=== PATIENT | female | born 1965 | race African-American/Black ===

== ENCOUNTER 2016-05-18 23:35 | Emergency (ER) | payer MEDICAID ==
--- NOTE | 2016-05-19 00:20 | ED Physician Chart ---
Chief Complaint/HPI - Patient Information Date Seen:: 05/19/16 Time Seen:: 00:15 Chief Complaint:: removal of toe ring History of Present Illness:: location: toe quality: ring needs removal severity: mild duration: several weeks context: pt with toe ring says the ring is stuck, cannot remove it, comes to ER for ring removal, no complaint of fever, or discharge or infection. mod factors: none assoc s/s: none hx from pt Allergies:: Allergies Allergy/AdvReac Type Severity Reaction Status Date / Time pollen Allergy Severe Uncoded 11/05/12 15:07 Vitals:: Vital Signs - 8 hr 05/18/16 23:54 Temp 98.1 F HR 63 RR 18 BP 137/85 O2 Sat % 100 Historian:: Patient Review:: Nurse's Note Reviewed Review of Systems - Review of Systems General/Constitutional: No fever, No chills, No weight loss, No weakness, No diaphoresis, No edema, No loss of appetite Skin: No skin lesions, No rash, No bruising Head: No headache, No light-headedness Eyes: No loss of vision, No pain, No diplopia ENT: No earache, No nasal drainage, No sore throat, No tinnitus Neck: No neck pain, No swelling, No thyromegaly, No stiffness, No mass noted Cardio Vascular: No chest pain, No palpitations, No PND, No orthopnea, No edema Pulmonary: No SOB, No cough, No sputum, No wheezing GI: No nausea, No vomiting, No diarrhea, No pain, No melena, No hematochezia, No constipation, No hematemesis G/U: No dysuria, No frequency, No hematuria Musculoskeletal: No bone or joint pain, No back pain, No muscle pain Endocrine: No polyuria, No polydipsia Psychiatric: No prior psych history, No depression, No anxiety, No suicidal ideation Hematopoietic: No bruising, No lymphadenopathy Allergic/Immuno: No urticaria, No angioedema Neurological: No syncope, No focal symptoms, No weakness, No paresthesia, No headache, No seizure, No dizziness, No confusion, No vertigo Past Medical History - Past Medical History Past Medical History: No significant medical hx Family History: None Social History: Alcohol, No Drug Use, Single Surgical History: None Psychiatricy History: None Medication: Reviewed Family Medical History - Family Member Mother History Unknown: Yes Ethnicity: Living Status: Still Living Hx Family Cancer: No Hx Family Coronary Artery Disease: No Hx Family Congestive Heart Failure: No Hx Family Hypertension: No Hx Family Stroke: No Hx Family Diabetes: No Hx Family Seizures: No Hx Family Dementia: No Hx Family AIDS: No Hx Family HIV: No Hx Family COPD: No Hx Family Hepatitis: No Hx Family Psychiatric Problems: Yes Hx Family Tuberculosis: No Physical Exam - Physical Examination General/Constitutional: Awake, Well-developed, well-nourished, Alert, No distress, GCS 15, Non-toxic appearing, Ambulatory Eyes: Lids, conjuctiva normal, PERRL, EOMI Respiratory: Nl effort/Exclusion, Clear to Auscultation, No Wheeze/Rhonchi/Rales Cardio Vascular: RRR, No murmur, gallop, rubs, NL S1 S2 Extremities: No tenderness or effusion, Full ROM, normal strength in all extremities, No edema, Normal digits & nails (toe ring on right second toe. no wound, no erythema, no discharge, no signs of infection. ring removed directly in ER with ring cutter. pt tolerated procedure well. no wound is observed. ) ED Septic Shock - . Is Septic Shock (SBP<90, OR Lactate>4 mmol\L) present?: No - <6hrs of presentation: Vital Signs: Vital Signs - 8 hr 05/18/16 23:54 Temp 98.1 F HR 63 RR 18 BP 137/85 O2 Sat % 100 Reassessment (Disposition) - Reassessment Reassessment:: MDM: pt with toe ring, says she cannot remove it. ring removed with ring cutter ED course: stable while in ER, toe ring removed directly with ring cutter. Reassessment Condition:: Improved - Diagnosis Diagnosis:: removal of toe ring - Aftercare/Follow up Instructions Aftercare/Follow-Up Instructions:: Refer to Discharge Instructions - Patient Disposition Discharge/Transfer:: Home Condition at Disposition:: Stable
== END 2016-05-19 00:45 | disposition home or self-care (01) ==
LOC: ER 23:35
DX: S90.454A Superficial foreign body, right lesser toe(s), initial encounter (principal); Z91.048 Other nonmedicinal substance allergy status; X58.XXXA Exposure to other specified factors, initial encounter; Y93.89 Activity, other specified; Y92.89 Other specified places as the place of occurrence of the external cause; Y99.8 Other external cause status
CPT/HCPCS: Z7502

== ENCOUNTER 2016-08-05 23:32 | Emergency (ER) | payer MEDICAID ==
[2016-08-06] MEDS ORDERED: Multivitamin Inj 10 ML, Thiamine HCL 100 MG, Magnesium Sulfate 2 GM, Folic Acid 1 MG in... IV ONE (00:07)
[2016-08-06] MEDS ORDERED: Multivitamin Inj 10 mL Vial IV ONE (00:12)
[2016-08-06] MEDS ORDERED: Thiamine 100 mg/mL 2mL Vial ONE (00:13)
[2016-08-06] MEDS ORDERED: Magnesium Sulfate 1 gm/2 mL 2mL Vial IV ONE (00:14)
--- NOTE | 2016-08-06 00:14 | ED Physician Chart ---
Chief Complaint/HPI - Patient Information Date Seen:: 08/06/16 Time Seen:: 00:00 Chief Complaint:: detoxification History of Present Illness:: wishes to be admitted to detoxify from alcohol. Has been drinking 2-3 bottles of wine per day for the last 2 months. Drank two bottles of wine yesterday. Thinks she is having alcohol withdrawal symptoms: confusion and dizziness. Allergies:: Allergies Allergy/AdvReac Type Severity Reaction Status Date / Time pollen Allergy Severe Uncoded 11/05/12 15:07 Vitals:: Vital Signs - 8 hr 08/05/16 23:35 Temp 98.2 F HR 96 RR 19 BP 147/95 O2 Sat % 97 Historian:: Patient Review:: Nurse's Note Reviewed Review of Systems - Review of Systems General/Constitutional: No fever, No chills Skin: No skin lesions Head: No headache Eyes: No loss of vision ENT: No earache, No sore throat Neck: No neck pain Cardio Vascular: No chest pain, No palpitations Pulmonary: No cough GI: No nausea, No vomiting Musculoskeletal: No bone or joint pain, No muscle pain Endocrine: No polyuria, No polydipsia Psychiatric: Prior psych history, Depression Hematopoietic: No bruising Allergic/Immuno: No urticaria Neurological: No syncope Family Medical History - Family Member Mother History Unknown: Yes Ethnicity: Living Status: Still Living Hx Family Cancer: No Hx Family Coronary Artery Disease: No Hx Family Congestive Heart Failure: No Hx Family Hypertension: No Hx Family Stroke: No Hx Family Diabetes: No Hx Family Seizures: No Hx Family Dementia: No Hx Family AIDS: No Hx Family HIV: No Hx Family COPD: No Hx Family Hepatitis: No Hx Family Psychiatric Problems: Yes Hx Family Tuberculosis: No Labs/Radiology/EKG Results - Lab Results Comments:: Laboratory Results - last 24 hr 08/06/16 08/06/16 08/06/16 00:14 00:14 00:14 WBC 5.6 RBC 4.31 Hgb 13.8 D Hct 40.4 D MCV 93.6 MCH 32.1 H MCHC Differential 34.3 RDW 13.4 Plt Count 212 MPV 7.0 Neutrophils % 44.3 Lymphocytes % 45.7 Monocytes % 9.2 Eosinophils % 0.4 Basophils % 0.4 Sodium 135 L Potassium 3.9 Chloride 99 Carbon Dioxide 23.5 Anion Gap 16.4 H BUN 13 Creatinine 0.7 Est GFR ( Amer) > 60.0 Est GFR (Non-Af Amer) > 60.0 BUN/Creatinine Ratio 18.6 Glucose 143 H Calcium 10.1 Magnesium 2.4 Total Bilirubin 0.4 AST 42 H ALT 30 Alkaline Phosphatase 81 Total Protein 8.5 H Albumin 4.8 Globulin 3.7 Albumin/Globulin Ratio 1.3 Urine Source Urine Color Urine Clarity Urine pH Ur Specific [place] Urine Protein Urine Glucose (UA) Urine Ketones Urine Blood Urine Nitrate Urine Bilirubin Urine Urobilinogen Ur Leukocyte Esterase Urine RBC Urine WBC Ur Epithelial Cells Urine Bacteria Urine Test Ethyl Alcohol 426 H 08/06/16 08/06/16 00:20 00:20 WBC RBC Hgb Hct MCV MCH MCHC Differential RDW Plt Count MPV Neutrophils % Lymphocytes % Monocytes % Eosinophils % Basophils % Sodium Potassium Chloride Carbon Dioxide Anion Gap BUN Creatinine Est GFR ( Amer) Est GFR (Non-Af Amer) BUN/Creatinine Ratio Glucose Calcium Magnesium Total Bilirubin AST ALT Alkaline Phosphatase Total Protein Albumin Globulin Albumin/Globulin Ratio Urine Source [place] Urine Color STRAW Urine Clarity CLEAR Urine pH 6.0 Ur Specific [place] Urine Protein NEGATIVE Urine Glucose (UA) NEGATIVE Urine Ketones NEGATIVE Urine Blood TRACE Urine Nitrate NEGATIVE Urine Bilirubin NEGATIVE Urine Urobilinogen 0.2 Ur Leukocyte Esterase TRACE H Urine RBC 0-1 Urine WBC 0-2 Ur Epithelial Cells RARE Urine Bacteria OCCASIONAL Urine Test NEGATIVE Ethyl Alcohol Assessment - Assessment General Assessment: talked to both Dr. Francisco Brown and Dr. Akers and neither doctor wanted to admit her. ED Septic Shock - . Is Septic Shock (SBP<90, OR Lactate>4 mmol\L) present?: No - <6hrs of presentation: Vital Signs: Vital Signs - 8 hr 08/05/16 23:35 Temp 98.2 F HR 96 RR 19 BP 147/95 O2 Sat % 97 Reassessment (Disposition) - Reassessment Reassessment Condition:: Improved - Diagnosis Diagnosis:: alcohol intoxication - Aftercare/Follow up Instructions Aftercare/Follow-Up Instructions:: Refer to Discharge Instructions - Patient Disposition Discharge/Transfer:: Home Condition at Disposition:: Stable, Improved
[2016-08-06 00:36] LABS: % BASOPHILS 0.4 % (0.0-2.0); % EOSINOPHILS 0.4 % (0.0-5.0); % LYMPHOCYTES 45.7 % (20.0-50.0); % MONOCYTES 9.2 % (2.0-10.0); % NEUTROPHILS 44.3 % (40.0-80.0); MEAN CELL VOLUME 93.6 fl (81-100); MEAN CORPUSCULAR HEMOGLOBIN 32.1 pg (27.0-31.0); MEAN CORPUSCULAR HGB CONC 34.3 pg (28.0-36.0); NEUTROPHILE ABSOLUTE 2.5 Th/cmm (1.8-8.0); PLATELET COUNT 212 Th/cmm (150-400); RED BLOOD COUNT 4.31 Mil/cmm (3.80-5.10); RED CELL DISTRIBUTION WIDTH 13.4 % (11.5-20.0); WHITE BLOOD COUNT 5.6 Th/cmm (4.8-10.8)
[2016-08-06 00:37] LABS: HEMATOCRIT 40.4 % (35.0-45.0); HEMOGLOBIN 13.8 gm/dL (11.7-15.5)
[2016-08-06 00:39] LABS: ALB/GLOB RATIO 1.3 (1.0-1.8); ALKALINE PHOSPHATASE 81 U/L (34-104); ANION GAP 16.4 (7.0-16.0); BILIRUBIN,TOTAL 0.4 mg/dL (0.3-1.0); BUN - UREA NITROGEN 13 mg/dL (7-25); BUN/CREATININE RATIO 18.6; CALCIUM SERUM 10.1 mg/dL (8.6-10.3); CARBON DIOXIDE 23.5 mEq/L (21.0-31.0); CHLORIDE 99 mEq/L (98-107); CREATININE - SERUM 0.7 mg/dL (0.6-1.2); GLUCOSE 143 mg/dL (70-105); POTASSIUM SERUM 3.9 mEq/L (3.5-5.1); SGOT 42 U/L (13-39); SGPT/ALT 30 U/L (7-52); SODIUM SERUM 135 mEq/L (136-145)
[2016-08-06 00:43] LABS: URINE BILIRUBIN NEGATIVE (NEGATIVE); URINE COLOR STRAW; URINE GLUCOSE (UA) NEGATIVE (NEGATIVE); URINE KETONE NEGATIVE (NEGATIVE)
[2016-08-06 00:44] LABS: URINE BACTERIA OCCASIONAL /hpf (NONE SEEN); URINE BLOOD TRACE (NEGATIVE); URINE EPITHELIAL CELLS RARE /lpf (FEW); URINE PROTEIN NEGATIVE (NEGATIVE); URINE RBC 0-1 /hpf (0-5); URINE UROBILINOGEN 0.2 E.U./dL (0.2 - 1.0); URINE WBC 0-2 /hpf (0-5)
== END 2016-08-06 05:25 | disposition home or self-care (01) ==
LOC: ER 23:32
DX: F10.129 Alcohol abuse with intoxication, unspecified (principal); Z91.09 Other allergy status, other than to drugs and biological substances
CPT/HCPCS: 99284; 36415; 85025; 81001; 80320; 81025; 83735; 80053; J3411; J3475; J7030; X6226; X6598; Z7502; Z7610

== ENCOUNTER 2016-09-01 17:23 | Emergency (ER) | payer MEDICAID ==
[2016-09-01 17:43] VITALS: BP 131/88
[2016-09-01] MEDS ORDERED: Albuterol Nebulizer 2.5mg/3mL HHN ONE (19:39)
--- NOTE | 2016-09-01 19:41 | ED Physician Chart ---
Chief Complaint/HPI - Patient Information Date Seen:: 09/01/16 Time Seen:: 19:35 Chief Complaint:: asthma exac History of Present Illness:: pt here for asthma exac. has albuterol mdi but didnt use it. has no fever hx. is wheezing a bit and chest feels tight w deep breath exactly like asthma flare ups in past. nonsmoker. pt says she was at [facility] yest and was given referral to allergy dr. pt thinks the jalyn green winds are causing allergy flare up w these sx and clear rhinitis sh complains of a st also. Allergies:: Allergies Allergy/AdvReac Type Severity Reaction Status Date / Time pollen Allergy Severe Uncoded 11/05/12 15:07 Vitals:: Vital Signs - 8 hr 09/01/16 09/01/16 17:42 17:45 Temp 98.4 F HR 65 RR 17 BP 131/88 131/88 O2 Sat % 99 Historian:: Patient Review of Systems - Review of Systems General/Constitutional: No fever, No chills, No weight loss, No weakness, No diaphoresis, No edema, No loss of appetite Skin: No skin lesions, No rash, No bruising Head: No headache, No light-headedness Eyes: No loss of vision, No pain, No diplopia ENT: No earache, Nasal drainage, Sore throat, No tinnitus Neck: No neck pain, No swelling, No thyromegaly, No stiffness, No mass noted Cardio Vascular: No chest pain, No palpitations, No PND, No orthopnea, No edema Pulmonary: No SOB, No cough, No sputum, Wheezing GI: No nausea, No vomiting, No diarrhea, No pain, No melena, No hematochezia, No constipation, No hematemesis G/U: No dysuria, No frequency, No hematuria Musculoskeletal: No bone or joint pain, No back pain, No muscle pain Endocrine: No polyuria, No polydipsia Psychiatric: No prior psych history, No depression, No anxiety, No suicidal ideation Hematopoietic: No bruising, No lymphadenopathy Allergic/Immuno: No urticaria, No angioedema Neurological: No syncope, No focal symptoms, No weakness, No paresthesia, No headache, No seizure, No dizziness, No confusion, No vertigo Past Medical History - Past Medical History Past Medical History: No significant medical hx, Asthma/COPD, Other (seasonal allergies) Social History: Non Smoker Medication: Reviewed Family Medical History - Family Member Mother History Unknown: Yes Ethnicity: Living Status: Still Living Hx Family Cancer: No Hx Family Coronary Artery Disease: No Hx Family Congestive Heart Failure: No Hx Family Hypertension: No Hx Family Stroke: No Hx Family Diabetes: No Hx Family Seizures: No Hx Family Dementia: No Hx Family AIDS: No Hx Family HIV: No Hx Family COPD: No Hx Family Hepatitis: No Hx Family Psychiatric Problems: Yes Hx Family Tuberculosis: No Physical Exam - Physical Examination General/Constitutional: Awake, Well-developed, well-nourished, Alert, No distress, GCS 15, Non-toxic appearing, Ambulatory Other Gen/Cons comments:: pt calm ...no sev distress. Head: Atraumatic Eyes: Lids, conjuctiva normal, PERRL, EOMI Skin: Nl inspection, No rash, No skin lesions, No ecchymosis, Well hydrated, No lymphadenopathy ENMT: External ears, nose nl, Nasal exam nl, Lips, teeth, gums nl Neck: Nontender, Full ROM w/o pain, No JVD, No nuchal rigidity, No bruit, No mass, No stridor Respiratory: Nl effort/Exclusion, Clear to Auscultation, No Wheeze/Rhonchi/Rales Other Respiratory comments:: lungs are act quite clear. Cardio Vascular: RRR, No murmur, gallop, rubs, NL S1 S2 GI: No tenderness/rebounding/guarding, No organomegaly, No hernia, Normal BS's, Nondistended, No mass/bruits, No McBurney tenderness : No CVA tenderness Extremities: No tenderness or effusion, Full ROM, normal strength in all extremities, No edema, Normal digits & nails Neuro/Psych: Alert/oriented, DTR's symmetric, Normal sensory exam, Normal motor strength, Judgement/insight normal, Mood normal, Normal gait, No focal deficits Misc: normal gait, Normal back, No paraspinal tenderness ED Septic Shock - . Is Septic Shock (SBP<90, OR Lactate>4 mmol\L) present?: No - <6hrs of presentation: Vital Signs: Vital Signs - 8 hr 09/01/16 09/01/16 17:42 17:45 Temp 98.4 F HR 65 RR 17 BP 131/88 131/88 O2 Sat % 99 Reassessment (Disposition) - Reassessment Reassessment:: pt feels better s/p neb tx. Reassessment Condition:: Improved - Diagnosis Diagnosis:: 1 asthma exacerbation (mild) 2 sore throat /pharyngitis - Aftercare/Follow up Instructions Aftercare/Follow-Up Instructions:: Counseled pt regarding lab results/diagnosis & need follow up Medication Prescribed:: rx amox - Patient Disposition Discharge/Transfer:: Home Condition at Disposition:: Improved ED Discharge Plan - Patient Disposition Instructions: Asthma, Adult, [id number], Viral and Bacterial Pharyngitis, [id number] Additional Instructions: take medications as prescribed
[2016-09-01] MEDS: Albuterol Nebulizer 2.5mg/3mL HHN STA (19:42)
== END 2016-09-01 20:15 | disposition home or self-care (01) ==
LOC: ER 17:23
DX: J45.901 Unspecified asthma with (acute) exacerbation (principal); J44.9 Chronic obstructive pulmonary disease, unspecified; J45.909 Unspecified asthma, uncomplicated; Z91.048 Other nonmedicinal substance allergy status
CPT/HCPCS: 94640; J7613; Z7502

== ENCOUNTER 2017-03-13 14:28 | Emergency (ER) | payer MEDICAID ==
--- NOTE | 2017-03-13 14:46 | ED Physician Chart ---
ED Chief Complaint/HPI - Patient Information Date Seen:: 03/13/17 Time Seen:: 14:46 Chief Complaint:: COCCYX INJURY LAST PM WALKING DOWN STAIRS AND FALLING. History of Present Illness:: THE PT WAS WALKING DOWN STAIRS LAST EVENING AND FELL LANDING ON BUTTOCK. SINCE THEN SHE HAS BEEN IN SEVERE 20/10 PAIN IN THE TAIL BONE. THE PT DENIES ANY HEAD, NECK OR EXTREMITY PAIN OR INJURIES. NO LOC, WEAKNESS OR PARENTHESES IN UPPER OR LOWER EXTREMITIES. PT DROVE HERSELF TO THE HOSPITAL. SHE LIVES WITHIN [address] OF [address]ITAL AND SAYS THAT SHE WILL BE ABLE TO WALK HOME AFTER RECEIVING PAIN MEDICATIONS. Allergies:: Allergies Allergy/AdvReac Type Severity Reaction Status Date / Time pollen Allergy Severe Uncoded 11/05/12 15:07 ED Review of Systems - Review of Systems General/Constitutional: No fever, No chills, No weight loss, Weakness ( Generalized weakness and for approximately one month.), No diaphoresis, No edema , Loss of appetite ( Loss of appetite over a period of one month.) Skin: No skin lesions, No rash, Bruising Head: No headache, Light headed Eyes: No loss of vision, No pain, No diplopia ENT: Nasal drainage (daily Due to allergies.), No sore throat, No tinnitus Neck: No neck pain, No swelling, No stiffness, No mass noted Cardio Vascular: No chest pain, No orthopnea, No edema Pulmonary: SOB, No SOB, No cough, No wheezing GI: No nausea, No vomiting, No diarrhea, Pain G/U: No dysuria, No frequency, No hematuria Sight Mounter: No vaginal discharge, No abnormal vaginal bleed Endocrine: No polyuria, No polydipsia Psychiatric: Prior psych history, Depression, Anxiety, No suicidal ideation, No visual hallucination Hematopoietic: No bruising, No lymphadenopathy Allergic/Immuno: Urticaria, Angioedema Neurological: No syncope, No paresthesia, No headache, No seizure, No dizziness , Vertigo, Other ( William generalized intention from her most prominent in the upper extremities.) Family Medical History - Family Member Mother History Unknown: Yes Ethnicity: Living Status: Still Living Hx Family Cancer: No Hx Family Coronary Artery Disease: No Hx Family Congestive Heart Failure: No Hx Family Hypertension: No Hx Family Stroke: No Hx Family Diabetes: No Hx Family Seizures: No Hx Family Dementia: No Hx Family AIDS: No Hx Family HIV: No Hx Family COPD: No Hx Family Hepatitis: No Hx Family Psychiatric Problems: Yes Hx Family Tuberculosis: No ED Labs/Radiology/EKG Results - Radiology Results Results: 3 VIEWS SACRUM AND COCCYX NEG FOR ACUTE FRACTURES OR DISLOCATION. NO SOFT TISSUE FOREIGN BODIES. IMPRESSION: NO ACUTE TRAUMATIC FINDINGS. ED Assessment - Assessment General Assessment: CASE SUMMARY:This 51-year-old female sustained an injury to her tailbone last evening when she fell walking downstairs. She landed on her tailbone with no associated head, neck, or extremity injuries. On physical examination she had marked tenderness over the coccyx. X-ray studies were negative for any acute fractures in that region. The patient's complaints were addressed with IV morphine and Toradol, She was discharged with a prescription for Percocet 10/ 325 with the usual precautions regarding mixing it with alcohol and taking it within six hours of driving or activities requiring alertness. MDM DDX for FALL ON STAIRS: NOT Acute head trauma based on patient's history and my physical exam of head. NOT C-Spine injury based on NEXUS criteria. NOT Lumbar spine injuries based on patiet's history and my physical exam. NOT Closed long bone fractures of upper or lower Extremities based on patient's history and my physical examination. NO Internal injuries of the chest or abdomen based on physical examination. ED Septic Shock - . Is Septic Shock (SBP<90, OR Lactate>4 mmol\L) present?: No ED Reassessment (Disposition) - Reassessment Reassessment Condition:: Improved - Diagnosis Diagnosis:: COCCYX CONTUSION USE IBUPROFEN FOR MILD TO MODERATE PAIN. USE THE PERCOCET FOR MORE SEVERE PAIN. DON'T MIX THE PERCOCET WITH ALCOHOL OR TAKE IT WITHIN 6 HOURS OF DRIVING OR ACTIVITIES REQUIRING ALERTNESS. FOLLOW UP WITH YOUR PRIMARY CARE PHYSICIAN THIS COMING WEEK. RETURN TO THE ER FOR ANY WORSENING OF YOUR SYMPTOMS OR NEW SYMPTOMS NOT ADDRESSED DURING YOUR ER EVALUATION. - Aftercare/Follow up Instructions Aftercare/Follow-Up Instructions:: Counseled pt regarding lab results/diagnosis & need follow up - Patient Disposition Discharge/Transfer:: Home ED Discharge Plan - Patient Disposition Admit/Discharge/Transfer: PT DISCHARGED HOME Condition at Disposition: Stable Prescriptions: Oxycodone HCl/Acetaminophen [Percocet 325 mg-10 mg*] 1 each PO Q6H PRN #10 tab PRN Reason: Pain (Moderate) Instructions: Contusion, [id number] Additional Instructions: Light activity as tolerated
[2017-03-13] MEDS ORDERED: Morphine Sulfate 4 mg/mL 1mL Syr IVP ONE (14:58)
[2017-03-13] MEDS ORDERED: Morphine Sulfate 2 mg/mL 1mL Syr ONE ×2 (15:05→16:31)
[2017-03-13] MEDS ORDERED: Hydrocodone/APAP 5mg/325mg Tab PO ONE (16:34)
[2017-03-13] MEDS ORDERED: APAP/Oxycodone 5/325mg Oral Tab PO STA (17:28)
[2017-03-13] MEDS ORDERED: APAP/Oxycodone 5/325mg Oral Tab ONE (17:39)
--- NOTE | 2017-03-14 07:52 | Diagnostic Imaging Report ---
Sacrum/coccyx (3 views) HISTORY: Pain No acute bony abnormalities. No fractures. Sacroiliac joints appear normal. Mild deformity about the right pubic symphysis but appears chronic. IMPRESSION: 1. No acute abnormalities 2. Subtle deformity involving the right pubic symphysis that appears chronic.
== END 2017-03-13 19:13 | disposition home or self-care (01) ==
LOC: ER 14:28
DX: S30.0XXA Contusion of lower back and pelvis, initial encounter (principal); Z91.09 Other allergy status, other than to drugs and biological substances; W19.XXXA Unspecified fall, initial encounter; Y93.89 Activity, other specified; Y92.89 Other specified places as the place of occurrence of the external cause; Y99.8 Other external cause status
CPT/HCPCS: 99284; 96374; 96375; 96376; 72220; J2270; J1885; J2405 ×2; Z7502

== ENCOUNTER 2018-01-15 21:53 | Emergency (ER) | payer MEDICAID ==
--- NOTE | 2018-01-15 23:39 | ED Physician Chart ---
ED Chief Complaint/HPI - Patient Information Date Seen:: 01/15/18 Time Seen:: 23:34 Chief Complaint:: knee ankle pains History of Present Illness:: 52 yr old female who fell down steps on porch earlier today with bilat knee pains and bilateral ankle pains and abraison lt jef lt ankle pain with swelling rt lat ankle Allergies:: Allergies Allergy/AdvReac Type Severity Reaction Status Date / Time pollen Allergy Severe Uncoded 11/05/12 15:07 Vitals:: Vital Signs - 8 hr 01/15/18 22:00 Temp 97.9 F HR 95 RR 18 BP 138/92 O2 Sat % 98 ED Review of Systems - Review of Systems General/Constitutional: No fever Skin: No skin lesions Head: No headache Eyes: No loss of vision ENT: No earache Neck: No neck pain Cardio Vascular: No chest pain Pulmonary: No SOB GI: No vomiting G/U: No dysuria 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 Musculoskeletal: Bone or joint pain Endocrine: No polyuria Psychiatric: No depression Allergic/Immuno: No urticaria Neurological: No syncope Family Medical History - Family Member Mother History Unknown: Yes Ethnicity: Living Status: Still Living Hx Family Cancer: No Hx Family Coronary Artery Disease: No Hx Family Congestive Heart Failure: No Hx Family Hypertension: No Hx Family Stroke: No Hx Family Diabetes: No Hx Family Seizures: No Hx Family Dementia: No Hx Family AIDS: No Hx Family HIV: No Hx Family COPD: No Hx Family Hepatitis: No Hx Family Psychiatric Problems: Yes Hx Family Tuberculosis: No ED Septic Shock - . Is Septic Shock (SBP<90, OR Lactate>4 mmol\L) present?: No - <6hrs of presentation: Vital Signs: Vital Signs - 8 hr 01/15/18 22:00 Temp 97.9 F HR 95 RR 18 BP 138/92 O2 Sat % 98 ED Reassessment (Disposition) - Reassessment Reassessment Condition:: Improved - Diagnosis Diagnosis:: rt distal fibular fx - Patient Disposition Discharge/Transfer:: Home Condition at Disposition:: Stable
--- NOTE | 2018-01-16 08:57 | Diagnostic Imaging Report ---
Right ankle (3 views) HISTORY: Pain, trauma There is a mildly displaced fracture of the distal fibula. Associated soft tissue swelling over the lateral aspect of the ankle. IMPRESSION: 1. Mildly displaced fracture of the distal fibula.
--- NOTE | 2018-01-16 08:57 | Diagnostic Imaging Report ---
Left ankle (2 views) HISTORY: Pain Marked soft tissue swelling over the lateral aspect of the ankle. There is a minimally displaced fracture across the lateral malleolus. Joint spaces appear normal. IMPRESSION: 1. Minimally displaced fracture of the medial malleolus with associated soft tissue swelling.
--- NOTE | 2018-01-16 09:00 | Diagnostic Imaging Report ---
Left knee (3 views) HISTORY: Pain Normal bone density. No acute bony abnormalities. No fractures. Joint spaces appear normal. IMPRESSION: No acute abnormalities
--- NOTE | 2018-01-16 09:01 | Diagnostic Imaging Report ---
Right knee (3 views) HISTORY: Pain No acute bony abnormalities. No fractures. Joint spaces appear normal. IMPRESSION: No acute bony abnormalities
== END 2018-01-16 00:25 | disposition home or self-care (01) ==
LOC: ER 21:53
DX: S82.831A Other fracture of upper and lower end of right fibula, initial encounter for closed fracture (principal); S80.212A Abrasion, left knee, initial encounter; Z91.048 Other nonmedicinal substance allergy status; M25.561 Pain in right knee; Z79.51 Long term (current) use of inhaled steroids; Z79.899 Other long term (current) drug therapy; W10.9XXA Fall (on) (from) unspecified stairs and steps, initial encounter; Y93.89 Activity, other specified; Y92.89 Other specified places as the place of occurrence of the external cause; Y99.8 Other external cause status
CPT/HCPCS: 36415-UA; 73562-TC-LT; 73562-TC-RT; 73600-LT-TC; 73600-TC-RT; 84703-TC; J1885

== ENCOUNTER 2018-08-17 12:17 | Emergency (ER) | payer MEDICAID ==
--- NOTE | 2018-08-17 12:44 | ED Physician Chart ---
ED Chief Complaint/HPI - Patient Information Date Seen:: 08/17/18 Time Seen:: 12:30 Chief Complaint:: facial and oral swelling History of Present Illness:: Patient has had swelling of her face, lips, tongue, gums, cheeks and throat for 1 month. She was seen at an urgent care center and prescribed medication which worked for only about 1 day. Allergies:: Allergies Allergy/AdvReac Type Severity Reaction Status Date / Time pollen Allergy Severe Uncoded 11/05/12 15:07 Vitals:: Vital Signs - 8 hr 08/17/18 12:26 Temp 98.4 F HR 105 RR 16 BP 107/76 O2 Sat % 99 Historian:: Patient Review:: Nurse's Note Reviewed ED Review of Systems - Review of Systems General/Constitutional: No fever, No chills, No weight loss, No weakness, No diaphoresis, No edema, No loss of appetite Skin: Other (see history and physical) Head: No headache Eyes: No loss of vision ENT: No earache, Sore throat Neck: No neck pain Cardio Vascular: No chest pain Pulmonary: No SOB GI: No nausea, No vomiting, No diarrhea G/U: No dysuria Musculoskeletal: No bone or joint pain Endocrine: No polyuria Psychiatric: No prior psych history, No depression Hematopoietic: No bruising Allergic/Immuno: No urticaria Neurological: No syncope ED Past Medical History - Past Medical History Past Medical History: Asthma/COPD, Other (allergies to dust, dirt, grass, dogs, cats and trees; migraine headaches) Family History: None Social History: Non Smoker, Other (currently occasionally consumes alcohol) Surgical History: other (right ankle fracture) Psychiatricy History: None Medication: Reviewed Family Medical History - Family Member Mother History Unknown: Yes Ethnicity: Living Status: Still Living Hx Family Cancer: No Hx Family Coronary Artery Disease: No Hx Family Congestive Heart Failure: No Hx Family Hypertension: No Hx Family Stroke: No Hx Family Diabetes: No Hx Family Seizures: No Hx Family Dementia: No Hx Family AIDS: No Hx Family HIV: No Hx Family COPD: No Hx Family Hepatitis: No Hx Family Psychiatric Problems: Yes Hx Family Tuberculosis: No ED Physical Exam - Physical Examination General/Constitutional: Awake, Well-developed, well-nourished, Alert, No distress, GCS 15, Non-toxic appearing, Ambulatory Head: Atraumatic Eyes: Lids, conjuctiva normal, PERRL, EOMI Other Skin comments:: swelling lower half of face ENMT: External ears, nose nl, TM canals nl, Nasal exam nl Other ENMT comments:: increased pharyngeal erythema without tonsillar swelling or exudate; swelling of lips lower more than upper Neck: Nontender, No nuchal rigidity Respiratory: Clear to Auscultation Cardio Vascular: RRR, No murmur, gallop, rubs, NL S1 S2 GI: No tenderness/rebounding/guarding Extremities: No tenderness or effusion, Full ROM Neuro/Psych: No focal deficits Misc: No paraspinal tenderness ED Assessment - Assessment General Assessment: Patient's symptoms are probably secondary to an allergic reaction. I suggested that patient's private physician refer her to an central service tech. Steroids are not indicated because any improvement would probably only be temporary and when steroids are discontinued symptoms would be very likely to return. ED Septic Shock - . Is Septic Shock (SBP<90, OR Lactate>4 mmol\L) present?: No - <6hrs of presentation: Vital Signs: Vital Signs - 8 hr 08/17/ 12:26 Temp 98.4 F HR 105 RR 16 BP 107/76 O2 Sat % 99 ED Reassessment (Disposition) - Reassessment Reassessment Condition:: Unchanged - Diagnosis Diagnosis:: Allergic reaction - Aftercare/Follow up Instructions Aftercare/Follow-Up Instructions:: Refer to Discharge Instructions - Patient Disposition Discharge/Transfer:: Home Condition at Disposition:: Stable, Unchanged
== END 2018-08-17 12:50 | disposition home or self-care (01) ==
LOC: ER 12:17
DX: T78.40XA Allergy, unspecified, initial encounter (principal); J44.9 Chronic obstructive pulmonary disease, unspecified; Z91.048 Other nonmedicinal substance allergy status; X58.XXXA Exposure to other specified factors, initial encounter
CPT/HCPCS: Z7502

== ENCOUNTER 2018-08-31 19:16 | Emergency (ER) | payer MEDICAID ==
--- NOTE | 2018-08-31 20:26 | ED Physician Chart ---
ED Chief Complaint/HPI - Patient Information Date Seen:: 08/31/18 Time Seen:: 20:15 Chief Complaint:: vomiting History of Present Illness:: Patient's been vomiting for 3 weeks all day and all night. She's had slight diarrhea. Has had epigastric and substernal chest pain. LMP was about 5 years ago. Allergies:: Allergies Allergy/AdvReac Type Severity Reaction Status Date / Time pollen Allergy Severe Uncoded 11/05/12 15:07 Vitals:: Vital Signs - 8 hr 08/31/18 19:25 Temp 97.9 F HR 122 RR 18 BP 110/88 O2 Sat % 100 Historian:: Patient Review:: Nurse's Note Reviewed ED Review of Systems - Review of Systems General/Constitutional: No fever, No chills, No weight loss, No weakness, No diaphoresis, No edema, No loss of appetite Skin: No skin lesions, No rash, No bruising Head: No headache, No light-headedness Eyes: No loss of vision, No pain, No diplopia ENT: No earache, No nasal drainage, No sore throat, No tinnitus Neck: No neck pain, No swelling, No thyromegaly, No stiffness, No mass noted Cardio Vascular: No chest pain, No palpitations, No PND, No orthopnea, No edema Pulmonary: No SOB, No cough, No sputum, No wheezing GI: Nausea, Vomiting, Diarrhea, No diarrhea, No pain, No melena, No hematochezia , No constipation, No hematemesis G/U: No dysuria, No frequency, No hematuria Musculoskeletal: No bone or joint pain, No back pain, No muscle pain Endocrine: No polyuria, No polydipsia Psychiatric: No prior psych history, No depression, No anxiety, No suicidal ideation Hematopoietic: No bruising, No lymphadenopathy Allergic/Immuno: No urticaria, No angioedema Neurological: No syncope, No focal symptoms, No weakness, No paresthesia, No headache, No seizure, No dizziness, No confusion, No vertigo ED Past Medical History - Past Medical History Past Medical History: Asthma/COPD Family History: None Social History: Non Smoker, No Alcohol Surgical History: other (right ankle) Family Medical History - Family Member Mother History Unknown: Yes Ethnicity: Living Status: Still Living Hx Family Cancer: No Hx Family Coronary Artery Disease: No Hx Family Congestive Heart Failure: No Hx Family Hypertension: No Hx Family Stroke: No Hx Family Diabetes: No Hx Family Seizures: No Hx Family Dementia: No Hx Family AIDS: No Hx Family HIV: No Hx Family COPD: No Hx Family Hepatitis: No Hx Family Psychiatric Problems: Yes Hx Family Tuberculosis: No ED Physical Exam - Physical Examination General/Constitutional: Awake, Well-developed, well-nourished, Alert, No distress, GCS 15, Non-toxic appearing, Ambulatory Head: Atraumatic Eyes: Lids, conjuctiva normal, PERRL, EOMI Skin: Nl inspection, No rash, No skin lesions, No ecchymosis, Well hydrated, No lymphadenopathy ENMT: External ears, nose nl, Nasal exam nl, Lips, teeth, gums nl Neck: Nontender, Full ROM w/o pain, No JVD, No nuchal rigidity, No bruit, No mass, No stridor Respiratory: Nl effort/Exclusion, Clear to Auscultation, No Wheeze/Rhonchi/Rales Cardio Vascular: RRR, No murmur, gallop, rubs, NL S1 S2 GI: No organomegaly, No hernia, Normal BS's, Nondistended, No mass/bruits, No McBurney tenderness Other GI comments:: epigastric tenderness : No CVA tenderness Extremities: No tenderness or effusion, Full ROM, normal strength in all extremities, No edema, Normal digits & nails Neuro/Psych: Alert/oriented, DTR's symmetric, Normal sensory exam, Normal motor strength, Judgement/insight normal, Mood normal, Normal gait, No focal deficits Misc: Normal back, No paraspinal tenderness ED Labs/Radiology/EKG Results - Lab Results Results: Laboratory Results WBC 13.6 Th/cmm (4.8-10.8) H 08/31/18 20:10 RBC 4.15 Mil/cmm (3.80-5.10) 08/31/18 20:10 Hgb 13.9 gm/dL (12-16) 08/31/18 20:10 Hct 40.7 % (41.0-60) L 08/31/18 20:10 MCV 98.2 fl (81-100) 08/31/18 20:10 MCH 33.6 pg (27.0-31.0) H 08/31/18 20:10 MCHC Differential 34.2 pg (28.0-36.0) 08/31/18 20:10 RDW 14.3 % (11.5-20.0) 08/31/18 20:10 Plt Count 487 Th/cmm (150-400) H 08/31/18 20:10 MPV 6.9 fl 08/31/18 20:10 Neutrophils % 78.7 % (40.0-80.0) 08/31/18 20:10 Lymphocytes % 13.9 % (20.0-50.0) L 08/31/18 20:10 Monocytes % 6.9 % (2.0-10.0) 08/31/18 20:10 Eosinophils % 0.2 % (0.0-5.0) 08/31/18 20:10 Basophils % 0.3 % (0.0-2.0) 08/31/18 20:10 Sodium 130 mEq/L (136-145) L 08/31/18 20:10 Potassium 2.6 mEq/L (3.5-5.1) L* 08/31/18 20:10 Chloride 88 mEq/L (98-107) L 08/31/18 20:10 Carbon Dioxide 17.4 mEq/L (21.0-31.0) L 08/31/18 20:10 Anion Gap 27.2 (7.0-16.0) H 08/31/18 20:10 BUN 13 mg/dL (7-25) 08/31/18 20:10 Creatinine 0.7 mg/dL (0.6-1.2) 08/31/18 20:10 Est GFR ( Amer) > 60.0 ml/min (>90) 08/31/18 20:10 Est GFR (Non-Af Amer) > 60.0 ml/min 08/31/18 20:10 BUN/Creatinine Ratio 18.6 08/31/18 20:10 Glucose 139 mg/dL (70-105) H 08/31/18 20:10 Calcium 10.7 mg/dL (8.6-10.3) H 08/31/18 20:10 Lipase 19 U/L (11-82) 08/31/18 20:10 - EKG Interpretations Rate & Rhythm: normal sinus rhythm with a rate of 82 [place]: normal ED Assessment - Assessment General Assessment: Patient needs admission for intractable vomiting and hypokalemi. I spoke to Dr. Kenney at 2315 and he accepted the patient in transfer to "[facility] or wherever they have a bed." ED Septic Shock - . Is Septic Shock (SBP<90, OR Lactate>4 mmol\\L) present?: No - <6hrs of presentation: Vital Signs: Vital Signs - 8 hr 08/31/18 19:25 Temp 97.9 F HR 122 RR 18 BP 110/88 O2 Sat % 100 ED Reassessment (Disposition) - Reassessment Reassessment Condition:: Improved - Diagnosis Diagnosis:: Intractable vomiting; gastroenteritis; hypokalemia - Patient Disposition Discharge/Transfer:: Acute Care (other hosp) Transport Method:: BLS Condition at Disposition:: Improved
[2018-08-31] MEDS ORDERED: Sodium Chloride 0.9% 1,000 ML IV ONE (20:28)
[2018-08-31 20:47] LABS: % BASOPHILS 0.3 % (0.0-2.0); % EOSINOPHILS 0.2 % (0.0-5.0); % LYMPHOCYTES 13.9 % (20.0-50.0); % MONOCYTES 6.9 % (2.0-10.0); % NEUTROPHILS 78.7 % (40.0-80.0); HEMATOCRIT 40.7 % (41.0-60); HEMOGLOBIN 13.9 gm/dL (12-16); LYMPHOCYTE ABSOLUTE 1.9 Th/cmm (1.5-3.0); MEAN CELL VOLUME 98.2 fl (81-100); MEAN CORPUSCULAR HEMOGLOBIN 33.6 pg (27.0-31.0); MEAN CORPUSCULAR HGB CONC 34.2 pg (28.0-36.0); MEAN PLATELET VOLUME 6.9 fl; MONOCYTE ABSOLUTE 0.9 Th/cmm (0.3-1.0); NEUTROPHILE ABSOLUTE 10.8 Th/cmm (1.8-8.0); PLATELET COUNT 487 Th/cmm (150-400); RED BLOOD COUNT 4.15 Mil/cmm (3.80-5.10); RED CELL DISTRIBUTION WIDTH 14.3 % (11.5-20.0); WHITE BLOOD COUNT 13.6 Th/cmm (4.8-10.8)
[2018-08-31 21:06] LABS: ANION GAP 27.2 (7.0-16.0); BUN - UREA NITROGEN 13 mg/dL (7-25); CALCIUM SERUM 10.7 mg/dL (8.6-10.3); CARBON DIOXIDE 17.4 mEq/L (21.0-31.0); CHLORIDE 88 mEq/L (98-107); CREATININE - SERUM 0.7 mg/dL (0.6-1.2); GFR AFRICAN-AMERICAN > 60.0 ml/min (>90); GFR NON AFRICAN-AMERICAN > 60.0 ml/min; GLUCOSE 139 mg/dL (70-105); LIPASE 19 U/L (11-82); SODIUM SERUM 130 mEq/L (136-145)
[2018-08-31 21:21] LABS: POTASSIUM SERUM 2.6 mEq/L (3.5-5.1)
[2018-08-31] MEDS ORDERED: Potassium Chloride 20 mEq ER Tab PO ONE ×2 (21:38→22:11)
== END 2018-09-01 04:10 | disposition short-term general hospital (02) ==
LOC: ER 19:16
DX: K52.9 Noninfective gastroenteritis and colitis, unspecified (principal); E87.6 Hypokalemia; J44.9 Chronic obstructive pulmonary disease, unspecified; Z91.048 Other nonmedicinal substance allergy status
CPT/HCPCS: 99285; 96374; 96376; 93005 ×2; 36415; 85025; 83690; 83735; 80048; J2405 ×2; J7030